=== PATIENT | female | born 1960 | race Caucasian/White ===

== ENCOUNTER 2022-04-07 05:05 | Day surgery (SDC) | payer OTHER ==
[~2022-04-07] VITALS: Ht 165.1 cm; Wt 64.0 kg
[2022-04-07] MEDS ORDERED: CEFAZOLIN SOD 1 GM in D5W 50 ML IV ONE (06:30)
[2022-04-07] MEDS ORDERED: CLINDAMYCIN PHOS 600 MG/ D5W 50 ML PREMIX IV ONE (08:00)
[2022-04-07] MEDS ORDERED: PROPOFOL 200MG/ 20ML VIAL (DIPRIVAN) IV ONE (10:51)
[2022-04-07] MEDS ORDERED: fentaNYL CITRATE/PF 100 MCG/2 ML AMP IVP ONE (10:51)
[2022-04-07] MEDS ORDERED: MIDAZOLAM HCL 5 MG/5 ML VIAL IVP ONE (10:51)
[2022-04-07] MEDS ORDERED: NS IRRIG SOLN 1000 ML IR ONE (10:51)
[2022-04-07] MEDS ORDERED: BUPIVACAINE /PF 0.25% 30 ML VIAL INJ ONE (10:51)
[2022-04-07] MEDS ORDERED: DEXAMETHASONE SOD PHOSPHATE 4 MG/ML VIAL IVP ONE (10:51)
[2022-04-07] MEDS ORDERED: LR 1,000 ML IV.SOLN IV ONE (10:51)
[2022-04-07] MEDS ORDERED: SEVOFLURANE 15 MIN GAS INH ONE (10:51)
[2022-04-07] MEDS ORDERED: ACETAMINOPHEN I.V. 1000 MG 100 ML IV ONE (11:23)
[2022-04-07] MEDS ORDERED: LR 1,000 ML IV SCH (11:30)
[2022-04-07] MEDS ORDERED: METOCLOPRAMIDE HCL 10 MG/2 ML VIAL IVP PRN (11:30)
[2022-04-07] MEDS ORDERED: LABETALOL 100 MG/ 20ML VIAL IVP PRN (11:30)
[2022-04-07] MEDS ORDERED: MIDAZOLAM HCL 2 MG/2 ML VIAL (VERSED) IVP PRN (11:30)
[2022-04-07] MEDS ORDERED: hydrALAZINE HCL 20 MG/ML VIAL IVP PRN (11:30)
[2022-04-07] MEDS ORDERED: HYDROmorphone 1 MG/ML INJ. CARTRIDGE IVP PRN ×2 (11:30)
[2022-04-07] MEDS ORDERED: MEPERIDINE HCL/PF 25 MG/ML DISP.SYRIN IVP PRN (11:30)
[2022-04-07] MEDS ORDERED: HYDROcodone/ACETAMIN 5-325 MG TAB (NORCO/ VICODIN) PO PRN ×2 (12:45)
[2022-04-07] MEDS ORDERED: D5/0.45 NS 1,000 ML IV SCH (12:45)
[2022-04-07 16:26] VITALS: BP_SYST 135
== END 2022-04-07 14:40 | disposition home or self-care (01) ==
LOC: SDS 05:05 → SMU 05:05 → EDSTATUS 09:05 → SDS 14:40
PROVIDERS: ATTEND Colon & Rectal Surgery
DX: C50.912 Malignant neoplasm of unspecified site of left female breast (principal); I10 Essential (primary) hypertension; F32.9 Major depressive disorder, single episode, unspecified; Z88.1 Allergy status to other antibiotic agents; Z88.8 Allergy status to other drugs, medicaments and biological substances; Z88.5 Allergy status to narcotic agent; Z79.899 Other long term (current) drug therapy; Z20.822 Contact with and (suspected) exposure to COVID-19
CPT/HCPCS: 36415 ×2; 19301; 38525; 38900; 19281; 78195; 88305; 88307; 88329; 88333; 88342; 87426; U0003; C9803; A9541; J3490 ×2; J1100; J2250; J2704; J3010; J7120; J0131; J0690; J7060